=== PATIENT | female | born 1995 | race Caucasian/White ===

== ENCOUNTER 2023-06-19 22:03 | Emergency (ER) | payer SELFPAY ==
[2023-06-19 22:12] VITALS: BP 123/74; PULSE 98; RESP 16; TEMP 36.5; O2SAT 100
--- NOTE | 2023-06-19 22:15 | W.ED.GENAD ---
Discharge Plan Disposition Patient Disposition: Home Condition: Stable Discharge Details Clinical Impression: Laceration of left index finger Primary Care Provider: Unknown,Unknown ED Provider: Uche Martines Home Meds and New Rx's Prescriptions: No Action No Known Home Meds Discharge Instructions Instructions: Finger Laceration (ED) Additional Instructions: You were seen in the emergency department for the minor superficial linear laceration of your left index finger, this was repaired by Steri-Strip, you have extras if this 1 falls off while washing her hands or other. You also were sent home with some skin glue, if you have trouble with the first manage you may want to apply a layer of skin glue on the bottom and then a Steri-Strip over the top. Please try to keep your finger immobile for the next 12 to 24 hours this will aid in wound adhesion. Please return to the ED for any signs of infection like redness spreading out from the area, drainage of pus from the area, fever, red streaking up the hand and arm. Double check with your primary care provider about your most recent tetanus shot- if outside the past 5 years, please obtain a Tdap booster. Discharge Data Discharge Date/Time-TO BE ENTERED AT DEPARTURE: 06/19/23 22:22 HPI General Date/Time Provider Initiated Documentation: 06/19/23 22:03. HPI Narrative: 27 year-old female presents to ED today by POV/ambulating with a chief complaint of L index finger laceration from straight-razor, R-hand dominant with onset just prior to arrival. Quality described as stinging, felt it went deep, no radiation to numbness/tingling distal, active bleeding, ROM deficit, proximal pain. Severity is described as moderate. Palliating factors include direct pressure with clean wash cloth with relief of bleeding. Provoking factors include nothing specific. Events leading up to the incident/Associated Symptoms: patient believes Tdap UTD, was 2 years ago and thinks it was updated then. Patient not anticoagulated. Related Data Home Medications Medication Instructions Recorded Confirmed Unknown [No Known Home Meds] 06/19/23 06/19/23 Allergies Allergy/AdvReac Type Severity Reaction Status Date / Time No Known Allergies Allergy Unverified 06/19/23 22:11 Review of Systems All systems reviewed & are unremarkable except as noted in HPI and below Exam Narrative Exam Narrative: GENERAL APPEARANCE: Well-nourished, non-toxic, awake and alert, atraumatic, no acute distress. SKIN: Warm, pink, dry, linear 1 cm superficial laceration to mid-phalanx of L index finger, no tendon visualized, superficial, ROM intact & strength intact in L index finger, brisk capillary refill, no active bleeding HEAD: Normocephalic, atraumatic, normal hair distribution for gender/age. EYES: Pupils PERRLA, EOMs intact without nystagmus, normal conjunctiva, no exudates on lids/lashes. ENT: Nares patent, no circumoral cyanosis, no facial swelling NECK: Supple, trachea midline, painless cervical ROM. LUNGS/CHEST: Non-labored respirations, normal A/P diameter, symmetrical expansion, no chest wall deformity HEART (CV/PV): Regular rate, L radial pulse 2+, no peripheral edema, no JVD. ABDOMEN: Soft, non-distended, no guarding. MSK: Normal ROM, no swelling/deformity to bilateral UEs or LEs, moving all extremities without weakness, no cyanosis, spine midline without tenderness, normal curvature. NEURO: Mental Status AAOx4 - alert to person, place, time, events No facial droop, no forehead involvement. Motor: No focal weakness - strength 5/5 in bilateral UEs and LEs, proximal and distal, symmetric. Sensory: sensation intact to light touch globally. Gait normal: patient ambulated without ataxia into ED room. PSYCH: euthymic, cooperative, pleasant, appropriate speech Procedures Laceration Laceration 1: Site: hand Side (If applicable): left Size (cm): 1 Description: linear and clean Technique: other (Steri-Strip Repair) Medical Decision Making This dictation utilizes [id number] dictation software and may contain unedited grammatical errors. 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 Slipped using a straight-razor, no active bleeding, sensation and circulation intact distally. Patient believes Tdap was updated 2 years ago during . Patients' medical history: noncontributory. Family and social history: noncontributory. Pertinent exam findings / vital signs include SKIN: Warm, pink, dry, linear 1 cm superficial laceration to mid-phalanx of L index finger, no tendon visualized, superficial, ROM intact & strength intact in L index finger, brisk capillary refill, no active bleeding. Differential / pathologies of concern include laceration, not tendon laceration, not grossly contaminated. Diagnostic studies of: -none. Interventions of: -steri-strip repair. ED Course/Assessment/Plan: 27-year-old female who is right-hand dominant presents with a minor linear superficial finger laceration from a straight razor to her left index finger, is not actively bleeding and appears very clean there is no tendon visualized, the wound approximated well with 1 Steri-Strip and I did send her home with more Steri-Strips. She states that her tetanus is up-to-date I encouraged her to double check with her primary care provider and obtain if necessary, strict return criteria for signs of infection. Findings not consistent with tendon laceration, grossly contaminated wound, NV compromise. Disposition of Laceration of Left Index Finger. Patient verbalized understanding of the plan and return to ED criteria and engaged in shared decision making. Medical Records Medical records reviewed: Yes I reviewed the patient's medical records. Quality:[facility] Health Related Social Needs: No Data to Display [facility] Social History Smoking/Tobacco Use Status: Never Smoking risk assessment performed?: Yes Alcohol Intake: never Drug use: Never Substance use type: does not use Housing: apartment Do you feel safe at home: Yes Do you feel safe in your relationship?: Yes
== END 2023-06-19 22:22 | disposition home or self-care (01) ==
LOC: ER 06-20 00:42
PROVIDERS: Emergency Provider Physician Assistant
DX: S61.211A Laceration without foreign body of left index finger without damage to nail, initial encounter (principal); W26.8XXA Contact with other sharp object(s), not elsewhere classified, initial encounter; Y93.E8 Activity, other personal hygiene
CPT/HCPCS: 99283

== ENCOUNTER 2023-06-28 14:56 | Emergency (ER) | payer SELFPAY ==
--- NOTE | 2023-06-28 15:02 | W.ED.GENAD ---
Discharge Plan Discharge Details Chief Complaint: Abd Prob Clinical Impression: Acute left lower quadrant pain Primary Care Provider: Unknown,Unknown ED Provider: Donn Cabrera Home Meds and New Rx's Prescriptions: No Action No Known Home Meds HPI General Date/Time Provider Initiated Documentation: 06/28/23 14:58. HPI Narrative: MDM This is an overall very well-appearing normothermic and not tachycardic 27-year-old female with sudden onset left lower quadrant pain most consistent with possibility of ruptured ovarian cyst versus torsion for which patient will undergo transvaginal formal ultrasound. Patient denies chance that she could be and has no free fluid on abdominal FAST exam so my suspicion for ruptured ectopic is low. No pain out of proportion to suggest necrotizing soft tissue infection. No right lower quadrant tenderness to suggest appendicitis. I considered diverticulitis however the patient the patient's age and lack of fevers and lack of diarrhea my suspicion for diverticulitis is low. Patient denies any abnormal vaginal discharge and so my suspicion is low for sexually transmitted infection. No fevers and not sexually active so doubt tubo-ovarian abscess. No dysuria no frequency so doubt UTI. No back pain to suggest pyelonephritis. No rash to skin to suggest zoster. Patient has not been vomiting and has no past abdominal surgical history so my suspicion for SBO is low. Patient does engage in weight lifting but denies any trauma to her abdomen and as result my suspicion for Vallejo-Lavall?e lesion is low. Similarly patient has been ambulatory and not fallen so my suspicion for a fracture is low. No shortness of breath or chest pain to doubt PE. 3:30 PM Urinalysis showing trace ketonuria but nitrite and leukoesterase negative. 4 p.m. Negative test. Patient metabolic panel showing mildly elevated creatinine. No prior for comparison. CBC lacks anemia thrombocytopenia and leukocytosis. Will sign patient out to Dr. Perez pending ultrasound. Chronic conditions affecting the care of the patient: N/A History obtained from an outside historian: N/A External record review: no [facility] [place] Medications: Ondansetron ketorolac and 500 cc of crystalloid Social determinants of health affecting disposition: N/A Management discussed with: Dr. Perez Treatment/interventions considered: N/A Response to therapies provided: N/A HPI This is a previously healthy 27-year-old female not on any home medications arriving to the emergency department via private vehicle in the setting of sudden onset left lower quadrant pain at approximately 1 PM. Patient reports remote history of ruptured ovarian cysts when she was 14 years old. She reports that this afternoon she felt a sudden onset pop when standing. She felt lightheaded but has not been nauseous or vomiting. She has never had any surgeries to her abdomen. She reports that her pain is improved by putting pressure on her left lower quadrant. She denies diarrhea. She is not sexually active. She denies abnormal vaginal discharge. She is a daily tobacco smoker occasionally smokes marijuana but denies routine ethanol. No chest pain. No shortness of breath. Exam General: Well-appearing in no acute distress speaking in complete sentences. Head: Normocephalic, atraumatic. Eye: Extraocular eye movements intact. No conjunctival injection. No scleral icterus. Ear, nose, mouth, throat: Grossly normal inspection. Normal voice, handling secretions normally. Neck: Trachea midline. Cardiovascular: Well-perfused distal extremities. Respiratory: Nonlabored respiration. Gastrointestinal: Nondistended abdomen. Soft. Minimally tender left lower quadrant. No rebound. No guarding. No right lower quadrant tenderness. No right upper quadrant tenderness. Musculoskeletal: No edema. Moving all 4 extremities spontaneously. Skin: Normal for age and race, grossly normal temperature and turgor. No acute rash. Neurologic: Alert and appropriate, no apparent acute deficits. Psychiatric: Mood and manner are appropriate. Grooming and personal hygiene are appropriate. Related Data Home Medications Medication Instructions Recorded Confirmed Unknown [No Known Home Meds] 06/19/23 06/28/23 Allergies Allergy/AdvReac Type Severity Reaction Status Date / Time banana Allergy Mild Swelling/Ed Verified 06/28/23 15:07 [email or web address] General MAI: 5 Medical Decision Making Quality:SDOH Health Related Social Needs: No Data to Display PFSH All Active Problems (Updated 06/28/23 @ 16:13 by Donn Cabrera MD) Acute left lower quadrant pain (Acute) Social History Smoking/Tobacco Use Status: Never Smoking risk assessment performed?: Yes Alcohol Intake: never Drug use: Never Substance use type: does not use Housing: apartment Do you feel safe at home: Yes Do you feel safe in your relationship?: Yes POCUS Exam (ED) FAST Exam DATE OF EXAM: 06/28/23 TIME OF EXAM: 15:36 PROVIDER THAT PERFORMED THE STUDY: Donn Cabrera IS THIS A REPEAT EXAM DURING THIS ENCOUNTER: no REASON FOR EXAM: Abdominal pain VISUALIZED STRUCTURES: Hepatorenal space, Pelvis and Perisplenic space PERTINENT FINDINGS/IMPRESSION: no apparent free fluid Limited Transthoracic Exam: Did not tolerate exam (did not complete) Limited Chest Exam: Did not tolerate exam (did not complete) Limited Abdominal Exam: Exam complete Limited Retroperitoneal Exam: Exam complete
[2023-06-28 15:03] VITALS: BP 110/81; PULSE 86; RESP 16; TEMP 36.9; O2SAT 100
--- NOTE | 2023-06-28 15:28 | DI.US_ITS ---
Exam(s) US PELVIS TRANSVAGINAL EXAM: US PELVIS TRANSVAGINAL CLINICAL HISTORY: Left lower quadrant pain TECHNIQUE: transvaginal imaging was performed using standard protocol. COMPARISON: No exams were available for comparison FINDINGS: UTERUS: Retroverted. 6.4 x 3.8 x 4.3 cm Endometrium: 5 mm Myometrium: Question of anterior fibroid measuring 2.7 cm maximal dimension versus artifact. Cervix: Unremarkable. OVARIES: Right: Cyst or mass: None. Left: Cyst or mass: None. DOPPLER: Color: Symmetric and uniform flow to both ovaries. No hyperemia. CUL-DE-SAC: Free fluid: None. IMPRESSION: 1. Question of anterior fibroid. Endometrial stripe within normal limits. 2. Unremarkable bilateral ovaries. DATA REPOSITORY:
[2023-06-28 15:29] LABS: Bilirubin Negative (Negative); Blood Negative (Negative); Clarity Clear (Clear); Glucose Negative (Negative); Ketones Trace mg/dL (Negative); Leukocyte Esterase Negative (Negative); Nitrite Negative (Negative); Specific Gravity >= 1.030 (1.005-1.025); Urobilinogen 0.2 mg/dL (Up to 0.2); pH 5.5 (5-8)
[2023-06-28 15:30] VITALS: BP 105/77; PULSE 75; O2SAT 97
[2023-06-28] MEDS: Ondansetron 4 MG/2 ML VIAL IVP (15:33)
[2023-06-28] MEDS: Normal Saline 500 ML IV (15:33)
[2023-06-28 15:35] LABS: Abs Immature Grans 0.01 10^3/uL (0.0-0.06); Absolute Basophil Count 0.04 10^3/uL (0.0-0.2); Absolute Eosinophil Count 0.08 10^3/uL (0.0-0.7); Absolute Lymphocyte Count 2.55 10^3/uL (1.2-3.4); Absolute Monocyte Count 0.33 10^3/uL (0.1-0.8); Absolute Neutrophil Count 2.78 10^3/uL (1.2-6.7); Basophils % 0.7; Eosinophils % 1.4; HCT 40.6 % (36.0-46.0); HGB 13.3 g/dL (11.2-15.7); Immature Grans % 0.2; MCH 27.7 pg (27.0-33.0); MCHC 32.8 % (32.0-36.0); MCV 84 fL (80-95); MPV 9.7 fL (8.0-11.0); Monocytes % 5.7; Platelet Count 283 10^3/uL (130-400); RBC 4.81 10^6/uL (3.93-5.22); RDW-SD 42.9 fL; WBC 5.79 10^3/uL (4.4-10.8)
[2023-06-28] MEDS: Ketorolac 15 MG/ML VIAL IVP (15:37)
[2023-06-28 15:47] LABS: Anion Gap 9.4 mmol/L (3-11); BUN 19 mg/dL (7-18); CO2 25.6 mmol/L (21.0-32.0); CREATININE 1.1 mg/dL (0.55-1.02); Calcium 8.9 mg/dL (8.5-10.1); Chloride 105 mmol/L (98-107); Estimated GFR 70.63 (mL/min/1.73m2); Glucose 85 mg/dL (74-106); Potassium 3.7 mmol/L (3.5-5.1); Sodium 140 mmol/L (136-145)
[2023-06-28 16:01] VITALS: BP 90/55; PULSE 73; O2SAT 98
[2023-06-28 16:23] LABS: HCG Qual (Serum) Negative
[2023-06-28 16:57] VITALS: BP 94/46; PULSE 50; O2SAT 97
[2023-06-28 17:01] VITALS: BP 92/45; PULSE 47
--- NOTE | 2023-06-28 17:07 | ED.PROG_ITS ---
Date of service: 06/28/23 Time of Service: 17:07 Medical Decision Making Patient signed out to me pending ultrasound which showed no acute findings and no evidence of torsion. Patient reassessed and states pain greatly improved has no tenderness on abdominal exam now, given reassuring labs and imaging do not f eel CT indicated. She is stable for discharge, advised to follow-up with her primary care provider and return precautions given Imaging Data Radiologic Study: Attestation: I personally reviewed and interpreted this imaging study as follows: Imaging: Ultrasound Radiologist's impression: No acute findings question of a fibroid Quality:SDOH Health Related Social Needs: No Data to Display Sign Out Sign Out Data: Sign Out Comment: Please follow-up formal transvaginal ultrasound to assess for torsion. If patient has improved symptoms she may be appropriate for discharge however if she has persistent pain she may require CT based on provider reasse ssment. Last updated by Donn Cabrera MD at 06/28/23 16:19 Discharge Plan Disposition Patient Disposition: Home Condition: Stable Discharge Details Clinical Impression: Abdominal pain Primary Care Provider: Unknown,Unknown ED Provider: Tyler Perez Home Meds and New Rx's Prescriptions: No Action No Known Home Meds Discharge Instructions Additional Instructions: Your labs and ultrasound did not show concerning findings at this time Follow-up with your primary care provider if still having symptoms If you feel more ill, or have severe worsening pain or new symptoms such as persistent vomiting return to the emergency department for reevaluation
[2023-06-28 17:20] VITALS: BP 105/61; PULSE 57; O2SAT 99
== END 2023-06-28 17:24 | disposition home or self-care (01) ==
PROVIDERS: Emergency Medicine; Emergency Provider Emergency Medicine
DX: R10.32 Left lower quadrant pain (principal)
CPT/HCPCS: 00123; 76705; 76857; 80048; 96361; 96374; 96375; 99284; 76830; 76856; 81003; 84703; 85025; J1885; J2405